=== PATIENT | male | born 1970 | race Caucasian/White ===

== ENCOUNTER 2019-02-04 23:57 | Emergency (ER) | payer OTHER, SELFPAY ==
[2019-02-04 23:58] VITALS: BP 160/95; PULSE 57; RESP 18; TEMP 36.7; O2SAT 96; BMI 30.5
--- NOTE | 2019-02-05 00:43 | ED.DCSUM_ITS ---
- ER Visit Summary Date of Service: 02/05/19 Chief Complaint: Back and leg pain History of Present Illness: The patient is a 48 M who presents with right sided lower back and leg pain. He has a history of similar symptoms although less severe. He complains of pain beginning in his right lower back and radiating all the way down the leg. She also complains of some numbness and tingling. He has had this as well although less severe. No weakness. No fevers or abdominal pain. No urinary retention or fecal incontinence. 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 Physical Examination: Afebrile vitals unremarkable Moist mucous membranes Patient does appear uncomfortable Heart regular rate Lungs are clear Patient has right paraspinal lumbar tenderness no midline tenderness he has negative straight leg raise bilaterally He has 5 out of strength bilaterally with dorsiflexion and plantarflexion, 5 out of 5 EHL on the right, 2+ dorsalis pedis pulse on the right, normal distal sensation bilaterally Test Results: Not indicated Emergency Department Course and Treatment: History and presentation are consistent with lumbar radiculopathy. He was given a [place] here for pain as well as a prescription for the same he was also placed on a prednisone burst. He was advised to follow-up with his primary care physician. He was advised he would likely benefit from physical therapy. Patient discharged. Treatment Plan: [] Disposition: Discharge Impression: Lumbar radiculopathy This note was generated with [employer] dictation software. It may contain incorrect words, spelling, and punctuation that were not noted in review of the chart prior to signing ED Disposition - Plan for ED Patient: Referrals: Christiano Kc MD [Primary Care Provider] -
--- NOTE | 2019-02-05 00:44 | DCINST.ED_ITS ---
ED Disposition - Plan for ED Patient: Instructions: ED Sciatica Prescriptions: Hydrocodone Bitart/Apap 5-325 [[place] 5MG-325MG] 1 tab PO Q6H PRN PRN 3 Days #12 tab PRN Reason: Pain predniSONE tablet 60 mg PO DAILY #15 tab Referrals: Christiano Kc MD [Primary Care Provider] -
[2019-02-05 00:50] VITALS: BP 146/89; PULSE 87; RESP 16; O2SAT 100
[2019-02-05] MEDS: HYDROcodone Bitartrate/Apap 5/325 Tablet PO (00:51)
== END 2019-02-05 00:56 | disposition home or self-care (01) ==
LOC: ED 02-05 00:54
PROVIDERS: Emergency Provider Emergency Medicine; Family Provider Internal Medicine; PCP Internal Medicine
DX: M54.16 Radiculopathy, lumbar region (principal); Z79.899 Other long term (current) drug therapy
CPT/HCPCS: 99283

== ENCOUNTER 2020-02-08 19:47 | Emergency (ER) | payer OTHER, SELFPAY ==
[2020-02-08 19:48] VITALS: BP 138/85; PULSE 97; RESP 16; TEMP 35.6; O2SAT 99; BMI 30.3
--- NOTE | 2020-02-08 19:59 | ED.VIS.GEN ---
History of Present Illness Chief Complaint: Laceration Detail of Chief Complaint: Right third finger laceration Informant: Patient Onset: Today Current Severity: Mild Maximum Severity: Mild Narrative: Patient states he was checking the ball bearing on his son's car. He went to spin the car and the rim caught his right third finger. He is a laceration across the pad of the distal phalanx. Patient is right-hand dominant. He reports his tetanus shot is up-to-date. - Past Medical History (1) Chronic back pain Status: Chronic (2) H/O knee surgery Status: Chronic Past Medical History - Allergies and Home Meds Allergies/Adverse Reactions: Allergies No Known Allergies Allergy (Verified 02/08/20 20:00) Primary Care Physician: Christiano Kc MD [Primary Care Provider] - Prior records reviewed: Yes Lives: Spouse/ Significant Other Smoking Status: Never smoker Review of Systems General: Denies: Chills, Fever Eyes: Denies: Visual changes - bilaterally ENT: Denies: Bilateral ear pain Cardiovascular: Denies: Chest pain Respiratory: Denies: Dyspnea, Cough Gastrointestinal: Denies: Abdominal pain, Nausea, Vomiting Musculoskeletal: Reports: Extremity Pain Skin: Reports: Wounds Neurological: Denies: Weakness, Parasthesia Hematologic: Denies: Easy bruising Allergy: Denies: Uticaria Physical Exam Vital Signs/Narrative: Vital Signs Temp Pulse Resp BP Pulse Ox 02/08/20 19:48 96.1 F L 97 16 138/85 H 99 Inital Vital Signs reviewed: Yes General: Well nourished, Well developed Head: Normocephalic ENT: Moist mucous membranes Neck: Supple Cardiovascular: Regular rate, Regular rhythm Respiratory: No distress, CTA bilaterally Abdomen: Soft, Nontender Extremities: - - Patient has a 1 cm laceration across the pad of the distal phalanx, right third finger. There is a small subungual hematoma noted under the nail. He has good range of motion and good sensation. Neurological: Alert, Oriented x3 Psychological: Normal affect Diagnostic/Tx/Re-eval 02/08/20 20:12 Xray Finger [Finger(s) Min 2 Views] [RAD] Stat Per my interpretation, transverse fracture across the distal phalanx of the right third finger. - Medical Decision Making Right third finger was anesthetized with 2 cc of 1% lidocaine. Wound was cleansed and irrigated. 4 simple interval sutures were placed with 5-0 nylon. Patient was then placed in a AlumaFoam splint. Because the patient does have an open fracture he will be treated with Keflex. He will also be given a prescription for [place] for breakthrough pain. He is given work restrictions and will follow up with orthopedics. Procedures - Lacerations No standard instances Length: 0.39 in Depth: Sub Q Shape: Linear Laceration repair: Digital block Number of Sutures/Alverto: 4 - 5-0 nylon Suture Information: Simple, 5-0 ED Disposition - Plan for ED Patient: Disposition: Home or Assisted Living Diagnosis: Fracture, finger, distal phalanx, open, Laceration Instructions: ED Fx Finger Open, ED Laceration Hand Prescriptions: Cephalexin [Keflex] 500 mg PO Q6 #40 cap Transmission Status: Pending to [id number] Hydrocodone Bitart/Apap 5-325 [[place] 5MG-325MG] 1 tablet PO Q6H PRN PRN 3 Days #10 tablet PRN Reason: Pain Transmission Status: Received by [id number] Referrals: José Miguel Matthews MD [STAFF PHYSICIAN] - 5-7 Days
--- NOTE | 2020-02-08 20:12 | RAD_ITS ---
STUDY: X-RAY - RIGHT HAND, ATTENTION THIRD FINGER REASON FOR EXAM: Male, 49 years old. Right 3rd digit laceration after smashing TECHNIQUE: 3 view(s) of the finger were obtained. COMPARISON: None. FINDINGS: Normal metacarpal head. Normal metacarpophalangeal joint. Normal proximal phalanx. Normal middle phalanx. There is a fracture within the mid diaphysis of the distal phalanx. There is mild dorsal angulation of the distal aspect of the distal phalanx. There is overlying soft tissue swelling. Normal proximal interphalangeal joint. Normal distal interphalangeal joint. RAD/Finger(s) Min 2 Views IMPRESSION: Distal phalanx fracture. Electronically Signed: Aranza Smith MD at 20:37 EDT Tel , Service support ,
[2020-02-08 20:43] VITALS: PULSE 70; RESP 16; O2SAT 98
[2020-02-08] MEDS: Cephalexin 250 MG Capsule 500 MG PO (20:46)
== END 2020-02-08 20:45 | disposition home or self-care (01) ==
PROVIDERS: Emergency Provider Emergency Medicine; PCP Internal Medicine
DX: S62.632B Displaced fracture of distal phalanx of right middle finger, initial encounter for open fracture (principal); X58.XXXA Exposure to other specified factors, initial encounter; Y93.89 Activity, other specified; Y99.9 Unspecified external cause status; M54.9 Dorsalgia, unspecified; G89.29 Other chronic pain
CPT/HCPCS: 12001; 73140; 99283

== ENCOUNTER 2023-01-10 17:24 | Emergency (ER) | payer OTHER, SELFPAY ==
[2023-01-10] VITALS (7 sets, daily range): BP systolic 136–157; BP diastolic 88–93; PULSE 59–75; RESP 9–16; TEMP 36.8–37.3; O2SAT 95–97; BMI 29.5
--- NOTE | 2023-01-10 18:25 | EKG12_ITS ---
Test Reason : DYSRHYTHMIA Blood Pressure : / mmHG Vent. Rate : 066 BPM Atrial Rate : 066 BPM P-R Int : 116 ms QRS Dur : 098 ms QT Int : 398 ms P-R-T Axes : 029 026 075 degrees QTc Int : 417 ms Normal sinus rhythm Normal ECG Confirmed by NATHANIEL FERNANDEZ, JOSE FRANCISCO ([id number]), clinical editor PRAMOD JOHN ([id number]) on 01/13/2023 1:52:41 PM Referred By: LAURA Confirmed By:JOSE FRANCISCO ARMSTRONG MD
--- NOTE | 2023-01-10 18:30 | RAD_ITS ---
EXAM: XR CHEST, 1 VIEW CLINICAL INDICATION: SOB TECHNIQUE: Frontal view of the chest. This report was created using [employer] report generation technology. COMPARISON: None. FINDINGS: LUNGS AND PLEURAL SPACES: Unremarkable. No consolidation or edema. No pneumothorax. No effusion. HEART: Unremarkable. Cardiac silhouette not enlarged. MEDIASTINUM: Central airways and mediastinal contour are unremarkable. BONES/JOINTS: Unremarkable. SOFT TISSUES: Unremarkable. RAD/Chest 1 View (Portable) IMPRESSION: No radiographic evidence of acute cardiopulmonary disease. Electronically Signed: Frank Ernst MD at 19:17 EST ,
[2023-01-10 19:08] LABS: Absolute Lymphocyte Count 0.79 X10^3/uL (0.83-4.51); Absolute Neutrophil Count 6.9 X10^3/uL (2.0-7.7); Basophil# 0.05 X10^3/uL; Basophil% 0.6 % (0-1); Eosinophil# 0.09 X10^3/uL; Hematocrit 52.4 % (40-54); Hemoglobin 17.4 g/dL (13.0-16.5); Lymphocyte # 0.79 X10^3/ul (0.83-4.51); Mean Corp Hgb Conc 33.2 g/dL (32-36); Mean Corpuscular Volume 87.2 fL (80-94); Monocyte# 0.91 X10^3/uL; Monocyte% 10.3 % (0-10); NRBC Flagged by Analyzer 0 % (0-5); Neutrophil # 6.94 X10^3/uL (2.7-7.7); Neutrophil % 78.8 % (47-70); POSITIVE COUNT YES; RBC Distribution Width CV 13.2 % (11.6-14.6); RBC Distribution Width SD 42.4 fl (35.1-43.9); Red Blood Count 6.01 M/mm3 (4.6-6.2); White Blood Count 8.8 K/mm3 (4.4-11.0)
[2023-01-10 19:47] LABS: Anion Gap 6 (5-15); BUN 15 mg/dL (7-18); BUN/Creat Ratio 13.5 RATIO (10-20); Calcium,Total 9.5 mg/dL (8.5-10.1); Chloride 102 mmol/L (98-107); Creatinine, Serum 1.11 mg/dL (0.70-1.30); EST Glomerular Filtration Rate 74 mL/min (>60); Est Glom Filt Rate - Afr Amer 90 mL/min (>60); Estimated Creatinine Clearance 81.29 ml/min; Glucose 99 mg/dL (74-106); Potassium 4.3 mmol/L (3.5-5.1); Sodium Level 136 mmol/L (136-145); Troponin-I HS 21 pg/mL (3.0-78.0)
[2023-01-10 19:58] LABS: Differential Indicated SCAN CRITERIA MET
[2023-01-10 19:59] LABS: Differential Comment SCANNED; Platelet Estimate ADEQUATE (ADEQ)
--- NOTE | 2023-01-10 20:37 | EDS_ITS ---
HPI HPI - URI History of Present Illness Chief Complaint: Shortness of Breath Narrative Narrative: 52-year-old male presenting with cough, congestion,, chills, generalized malaise for about 3 days. Patient does not know if he had a fever. He has not checked. Patient states he has had some daljit sputum. No miguelangel mopped assist. He is not having chest pain but does complain of congestion. He does feel like he is short of breath. No cardiac history. No history of DVT/PE and no risk factors. Patient states he went to the urgent care today and was referred to the ER. ROS [facility] ED Constitutional Constitutional ED: Reports chills and subjective Eyes Eyes: Denies change in vision or diplopia ENT ENT ED: Reports rhinorrhea Cardiovascular Cardiovascular: Denies chest pain or palpitations Respiratory/Chest Respiratory/Chest: Reports cough and dyspnea Gastrointestinal Gastrointestinal: Denies nausea Genitourinary Genitourinary ED: Denies dysuria or hematuria Musculoskeletal Musculoskeletal: Reports myalgias Integumentary Denies abscess or Abrasions Neurologic Neurologic: Reports headache(s); Denies paresthesias or weakness Psychiatric Psychiatric: Denies anxiety or depression PFSH PFSH Home Medications tamsulosin 0.4 mg capsule 0.8 mg PO DAILY 02/05/19 [History Last Taken Unknown] gabapentin 300 mg capsule 300 mg PO TIDCM 02/08/20 [History Last Taken Unknown] guaifenesin 1,200 mg tablet, extended release 12 hr (Mucinex) 1,200 mg PO BID #14 tabs 01/10/23 [Rx Last Taken Unknown] pseudoephedrine HCl 120 mg tablet,extended release (Sudafed 12 Hour) 120 mg PO Q12H #10 tabs 01/10/23 [Rx Last Taken Unknown] tadalafil 5 mg tablet (Cialis) 5 mg PO DAILY 01/10/23 [History Last Taken Unknown] Allergy/AdvReac Type Severity Reaction Status Date / Time No Known Allergies Allergy Verified 01/10/23 19:04 Social History Smoking Status: Never smoker EXAM Physical Exam Const Vital Signs: 01/10/23 17:25 01/10/23 19:02 01/10/23 19:02 Temperature 98.3 F 98.6 F 98.6 F Temperature Source Temporal Oral Oral Pulse Rate 75 66 68 Respiratory Rate 14 12 9 L Respiratory Effort Respiratory Depth Respiratory Pattern Blood Pressure 157/91 H 136/89 H 136/89 H Blood Pressure Mean 113 104 104 Pulse Ox 96 96 Oxygen Delivery Method Room Air Room Air 01/10/23 19:03 01/10/23 19:03 01/10/23 19:05 Temperature Temperature Source Pulse Rate Respiratory Rate 11 L Respiratory Effort Normal Non-Labored Respiratory Depth Normal Respiratory Pattern Normal Blood Pressure Blood Pressure Mean Pulse Ox 95 95 Oxygen Delivery Method Room Air Room Air Room Air 01/10/23 20:17 Temperature 99.1 F Temperature Source Oral Pulse Rate 71 Respiratory Rate 16 Respiratory Effort Respiratory Depth Respiratory Pattern Blood Pressure 137/88 H Blood Pressure Mean 104 Pulse Ox 96 Oxygen Delivery Method Room Air Positive well nourished General Appearance ED: NAD; Negative for pallor HEENT Reports moist mucous membranes normocephalic and atraumatic Eyes PERRL and EOMs intact bilaterally Resp normal respiratory effort and clear to auscultation bilaterally Auscultation: Negative for rales, rhonchi or wheezes Cardio Rate: regular rate GI non-tender Extremity normal to inspection Neuro oriented x3 and CN's II-XII intact bilaterally Sensorium / Orientation: alert Motor Exam: strength 5/5 throughout Psych mental status grossly normal Skin General Skin Exam: Negative for jaundice or pallor MDM MDM MDM Narrative Medical decision making narrative: Patient presenting with fever, chills, body aches, cough and congestion. He does report daljit sputum. He also reports that he is dyspneic. Differential gnosis includes viral etiology including COVID, influenza. Patient outside treatment window for influenza so I will test for COVID. This could also be pneumonia so we will obtain blood work. CBC to assess white blood cell count, hemoglobin, platelets, differential. BMP to assess renal function, electrolytes. We will obtain an EKG and a chest x-ray given the dyspnea on exertion. High-sensitivity troponin as well. CBC and BMP unremarkable. High- sensitivity troponin 21. Chest x-ray my interpretation shows no acute process. Radiologist represents and agrees. Patient is well-appearing. I counseled him this is likely something viral. He did request antibiotics, however I stated to him that I did not think this was bacterial infection and I do not think he needs them. He was given Mucinex and Sudafed. Follow-up with PCP as needed. Return precautions discussed. Impression: 1. Viral syndrome Lab Data Labs: Laboratory Results - last 24 hr 01/10/23 01/10/23 18:54 18:54 WBC 8.8 RBC 6.01 Hgb 17.4 H Hct 52.4 MCV 87.2 MCH 29.0 MCHC 33.2 RDW Std Deviation 42.4 RDW Coeff of [place] 13.2 Plt Count Immature Gran % (Auto) 0.300 Neut % (Auto) 78.8 H Lymph % (Auto) 9.0 L [place] % (Auto) 10.3 H Eos % (Auto) 1.0 Baso % (Auto) 0.6 Absolute Neuts (auto) 6.9 Absolute Lymphs (auto) 0.79 L Nucleated RBC % 0 Differential Comment SCANNED Platelet Estimate ADEQUATE Sodium 136 Potassium 4.3 Chloride 102 Carbon Dioxide 28.0 Anion Gap 6 BUN 15 Creatinine 1.11 Estim Creat Clear Calc 81.29 Est GFR (MDRD) Af Amer 90 Est GFR (MDRD) Non-Af 74 BUN/Creatinine Ratio 13.5 Glucose 99 Calcium 9.5 Troponin I High Sens 21 Radiography Diagnostic Testing: Clinical Impression(s) from Imaging Studies Chest X-Ray 01/10/23 18:30 IMPRESSION: No radiographic evidence of acute cardiopulmonary disease. Electronically Signed: Frank Ernst MD at 19:17 EST Reading Location ID and State: [facility] / [place] , Service support , Discharge Plan Triage Chief Complaint: Shortness of Breath Other Complaint: Cough ED Provider: Volodymyr Vallecillo Dx/Rx/DC Orders Instructions: ED Viral Syndrome (Adult) Prescriptions: New pseudoephedrine HCl [Sudafed 12 Hour] 120 mg tablet extended release 120 mg PO Q12H Qty: 10 0RF Mucinex 1,200 mg tablet extended release 12hr 1,200 mg PO BID Qty: 14 0RF No Action tamsulosin 0.4 MG capsule 0.8 mg PO DAILY gabapentin 300 MG capsule 300 mg PO TIDCM tadalafil [Cialis] 5 mg tablet 5 mg PO DAILY Label Comments: TAKE 1 TABLET BY MOUTH DAILY Primary Care Provider: Christiano Kc Referrals: Christiano Kc MD [Primary Care Provider] - Disposition Disposition: Home, Self Care
== END 2023-01-10 20:43 | disposition home or self-care (01) ==
PROVIDERS: Emergency Provider Student in an Organized Health Care Education/Training Program; PCP Internal Medicine; Visit Provider Student in an Organized Health Care Education/Training Program
DX: R06.02 Shortness of breath (principal); B34.9 Viral infection, unspecified; R51.9 Headache, unspecified; Z20.822 Contact with and (suspected) exposure to COVID-19
CPT/HCPCS: 71045; 80048; 84484; 85025; 87811; 93005; 94760; 99282